=== PATIENT | male | born 1945 | race Caucasian/White ===

== ENCOUNTER 2019-03-02 11:30 | Emergency (ER) | payer MEDICARE, OTHER ==
[2019-03-02] MEDS ORDERED: IPRATROPIUM/ALBUTEROL 3 ML NEB INH STA (12:15)
[2019-03-02 12:52] LABS: BASOPHILS # (AUTO) 0.1 10^3/uL (0.0-0.1); BASOPHILS % (AUTO) 1.1 %; EOSINOPHILS # (AUTO) 0.1 10^3/uL (0.0-0.7); EOSINOPHILS % (AUTO) 0.8 %; HGB - HEMOGLOBIN 13.4 g/dL (14.0-18.0); LYMPHOCYTES # (AUTO) 1.4 10^3/uL (1.5-3.5); LYMPHOCYTES % (AUTO) 21.9 %; MEAN CORPUSCULAR HEMOGLOBIN 32.1 pg (27.0-31.0); MEAN CORPUSCULAR HGB CONC 33.3 g/dL (32.0-36.0); MEAN CORPUSCULAR VOLUME 96.4 fL (80.0-94.0); MEAN PLATELET VOLUME 7.1 fL (7.4-11.4); MONOCYTES # (AUTO) 0.5 10^3/uL (0.0-1.0); MONOCYTES % (AUTO) 8.3 %; NEUTROPHILS # (AUTO) 4.3 10^3/uL (1.5-6.6); NEUTROPHILS % (AUTO) 67.9 %; PLT - PLATELET COUNT 284 10^3/uL (130-450); RED BLOOD COUNT 4.18 10^6/uL (4.70-6.10); RED CELL DISTRIBUTION WIDTH 14.9 % (12.0-15.0); WHITE BLOOD COUNT 6.3 x10^3/uL (4.8-10.8)
[2019-03-02 13:04] LABS: ALBUMIN 3.5 g/dL (3.2-5.5); ALBUMIN/GLOBULIN RATIO 1.1 (1.0-2.2); BILIRUBIN,TOTAL 0.6 mg/dL (0.2-1.0); CALCIUM 8.6 mg/dL (8.5-10.3); CREATININE 0.7 mg/dL (0.6-1.2); TOTAL PROTEIN 6.6 g/dL (6.7-8.2)
--- NOTE | 2019-03-02 13:31 | XRAY Report ---
Reason: dyspnea Procedure Date: 03/02/2019 Accession Number: [id number] / [id number] Procedure: XR - Chest 2 View X-Ray CPT Code: 24111 FULL RESULT: EXAM: CHEST RADIOGRAPHY EXAM DATE: 03/02/2019 01:09 PM. CLINICAL HISTORY: Shortness of air. Worsening. COMPARISON: None. TECHNIQUE: 2 views. FINDINGS: Lungs/Pleura: Hyperinflation. No consolidation. No vascular congestion. No pneumothorax but biapical parenchymal scarring and pleural thickening. Mediastinum: Heart size is normal. Aorta is mildly tortuous. Other: Degenerative changes of the thoracic spine. IMPRESSION: 1. Hyperinflation. 2. No acute disease. RADIA
--- NOTE | 2019-03-02 14:14 | ED Physician Documentation ---
History of Present Illness - Stated complaint Stated Complaint: SOA - Chief complaint Chief Complaint: Resp - History obtained from History obtained from: Patient - History of Present Illness Timing: How many weeks ago (several) Pain level max: 0 Pain level now: 0 Improved by: rest Worsened by: exertion - Additonal information Additional information: 73-year-old male presents the emergency department with difficulty breathing for the past several months. Worsening over the past week or so. Does have a long history of smoking, but quit 10 years ago. No recent illness. Minimal cough. No fever. He has been seen by his doctor for this with no diagnosis. He also complains that he has had tingling pains in his feet for several years. Review of Systems Constitutional: denies: Fever, Chills GI: denies: Vomiting Skin: denies: Rash Musculoskeletal: denies: Neck pain, Back pain Neurologic: denies: Headache PD PAST MEDICAL HISTORY - Past Medical History Past Medical History: Yes Endocrine/Autoimmune: Type 2 diabetes - Past Surgical History Past Surgical History: Yes - Present Medications Home Medications: Ambulatory Orders Medication Instructions Recorded Confirmed Albuterol Sulf [Ventolin Hfa 1 - 2 puffs INH Q4HR PRN #1 inhaler 03/02/19 Inhaler] Fluticasone Propionate [Flovent 12 gm INH BID #1 aer.w.adap 03/02/19 Hfa] - Allergies Allergies/Adverse Reactions: Allergies Allergy/AdvReac Type Severity Reaction Status Date / Time acetaminophen [From Tylenol] Allergy Rash Verified 03/02/19 11:39 - Social History Does the pt smoke?: No Smoking Status: Never smoker - Immunizations Immunizations are current?: Yes PD ED PE NORMAL - Vitals Vital signs reviewed: Yes - General General: Alert and oriented X 3, No acute distress - HEENT HEENT: Moist mucous membranes - Neck Neck: Supple, no meningeal sign - Cardiac Cardiac: RRR - Respiratory Respiratory: No respiratory distress, Other (diminished BS bilaterally.) - Abdomen Abdomen: Soft, Non tender, Non distended - Derm Derm: Warm and dry - Extremities Extremities: No edema, Other (Cool bilateral lower extremity over the feet. No sores. Does have palpable pulses but weak.) - Neuro Neuro: Alert and oriented X 3 - Psych Psych: Normal mood, Normal affect Results - Vitals Vitals: Vital Signs - 24 hr 0503/02/19 03/02/19 11:35 12:46 13:18 Temperature 36.4 C 36.4 C L Heart Rate 91 88 79 Respiratory 16 18 12 Rate Blood Pressure 160/97 134/83 H O2 Saturation 98 98 03/02/19 14:40 Temperature Heart Rate 81 Respiratory 18 Rate Blood Pressure 136/80 H O2 Saturation 95 Oxygen O2 Source Room air - EKG (time done) 1141 Rate: Rate (enter#) (85) Rhythm: NSR [place]: Anterior hemiblock (Left anterior fascicular block) Intervals: Normal MS QRS: Normal Ischemia: Normal ST segments - Labs Labs: Laboratory Tests 03/02/19 03/02/19 03/02/19 12:43 12:43 12:43 WBC 6.3 RBC 4.18 L Hgb 13.4 L Hct 40.2 L MCV 96.4 H MCH 32.1 H MCHC 33.3 RDW 14.9 Plt Count 284 MPV 7.1 L Neut # (Auto) 4.3 Lymph # (Auto) 1.4 L [place] # (Auto) 0.5 Eos # (Auto) 0.1 Baso # (Auto) 0.1 Absolute Nucleated RBC 0.00 Nucleated RBC % 0.0 Sodium 132 L Potassium 4.4 Chloride 96 L Carbon Dioxide 27 Anion Gap 9.0 BUN 5 L Creatinine 0.7 Estimated GFR (MDRD) 110 Glucose 102 H Calcium 8.6 Total Bilirubin 0.6 AST 30 ALT 15 Alkaline Phosphatase 66 Troponin I < 0.04 B-Natriuretic Peptide Total Protein 6.6 L Albumin 3.5 Globulin 3.1 Albumin/Globulin Ratio 1.1 Lipase 23 03/02/19 12:43 WBC RBC Hgb Hct MCV MCH MCHC RDW Plt Count MPV Neut # (Auto) Lymph # (Auto) [place] # (Auto) Eos # (Auto) Baso # (Auto) Absolute Nucleated RBC Nucleated RBC % Sodium Potassium Chloride Carbon Dioxide Anion Gap BUN Creatinine Estimated GFR (MDRD) Glucose Calcium Total Bilirubin AST ALT Alkaline Phosphatase Troponin I B-Natriuretic Peptide 24 Total Protein Albumin Globulin Albumin/Globulin Ratio Lipase - Rads (name of study) cxr Radiology: Prelim report reviewed, EMP read contemporaneously, See rad report (Hyperinflation without acute disease) PD MEDICAL DECISION MAKING - ED course Complexity details: reviewed results, re-evaluated patient (Feels better after nebulizer treatment), considered differential, d/w patient ED course: 73-year-old male with what appears to be a mild COPD flare. He is not on any inhalers at home. Will place him on Flovent and albuterol. He is well- appearing, nontoxic. Afebrile. No evidence of congestive heart failure. Patient counseled regarding signs and symptoms for which I believe and urgent re-evaluation would be necessary. Patient with good understanding of and agreement to plan and is comfortable going home at this time This document was made in part using voice recognition software. While efforts are made to proofread this document, sound alike and grammatical errors may occur. Patient also likely has peripheral vascular disease affecting the blood flow to his feet. Recommend further evaluation by his doctor for this Departure - Departure Disposition: 01 Home, Self Care Clinical Impression: COPD (chronic obstructive pulmonary disease) Qualifiers: COPD type: unspecified COPD Qualified Code(s): J44.9 - Chronic obstructive pulmonary disease, unspecified Condition: Good Instructions: ED COPD Flare Follow-Up: Jose Russo MD [Primary Care Provider] - Within 1 week Prescriptions: Albuterol Sulf [Ventolin Hfa Inhaler] 1 - 2 puffs INH Q4HR PRN #1 inhaler PRN Reason: Shortness Of Air/Wheezing Fluticasone Propionate [Flovent Hfa] 12 gm INH BID #1 aer.w.adap Comments: Use the medications as prescribed. Return if you worsen. Follow-up with your doctor for further evaluation and care. You may want to have your doctor performed vascular studies on your feet as it appears that you do have peripheral vascular disease and this may be causing the discomfort in your feet as well. Discharge Date/Time: 03/02/19 14:54
[2019-03-02 14:54] VITALS: BP 136/80
== END 2019-03-02 14:54 | disposition home or self-care (01) ==
LOC: ED 11:30
DX: J44.1 Chronic obstructive pulmonary disease with (acute) exacerbation (principal); E11.9 Type 2 diabetes mellitus without complications; Z87.891 Personal history of nicotine dependence
CPT/HCPCS: 36415; 71046; 80053; 83690; 83880; 84484; 85025; 93005; 94640; 94664; 99283; 99284

== ENCOUNTER 2019-07-04 09:34 | Outpatient (CLI) | payer OTHER ==
[~2019-07-04 09:34] MED LIST: ALBUTEROL NEB 2.5 MG/3 ML INH SCH
== END 2019-07-04 09:35 | disposition home or self-care (01) ==
LOC: RT 09:34
PROVIDERS: ATTEND Family Medicine
DX: R06.02 Shortness of breath (principal); R06.00 Dyspnea, unspecified; F17.200 Nicotine dependence, unspecified, uncomplicated
CPT/HCPCS: 94060; 94727; 94729

== ENCOUNTER 2021-05-30 07:59 | Outpatient (CLI) | payer OTHER | END 2021-05-30 08:00 | disposition critical access hospital (66) | LOC: EMS 07:59 | DX: R06.02 Shortness of breath (principal) | CPT/HCPCS: A0425; A0427 ==

== ENCOUNTER 2021-05-30 08:40 | Inpatient (IN) | payer MEDICARE, OTHER ==
[2021-05-30] MEDS ORDERED: ALBUTEROL NEB 2.5 MG/3 ML INH STA (08:50)
--- NOTE | 2021-05-30 08:54 | ED Physician Documentation ---
PD HPI DYSPNEA - Stated complaint Stated Complaint: SOA - History obtained from History obtained from: Patient, EMS - Additional information Additional information: 75-year-old gentleman with COPD on Spiriva and albuterol. Does not wear oxygen at home. He quit smoking about 10 years ago. He has had progressive shortness of breath since the heat wave a month ago but much worse over the last week with cough productive of scant sticky thick mucus. No fevers. Noted to be hypoxic by EMS. On 6 L nasal cannula to be in the low 90s here. Prior to arrival received a DuoNeb, and albuterol neb, and 125 mg of Solu-Medrol. No associated chest pain or pedal edema. Review of Systems Ten Systems: 10 systems reviewed and negative Constitutional: denies: Fever, Chills Cardiac: denies: Chest pain / pressure, Palpitations Respiratory: reports: Dyspnea, Cough PD PAST MEDICAL HISTORY - Past Medical History Endocrine/Autoimmune: Type 2 diabetes - Past Surgical History Past Surgical History: Yes - Present Medications Home Medications: Ambulatory Orders Medication Instructions Recorded Confirmed Albuterol Sulf [Ventolin Hfa 1 - 2 puffs INH Q4HR PRN #1 inhaler 03/02/19 Inhaler] Fluticasone Propionate [Flovent 12 gm INH BID #1 aer.w.adap 03/02/19 Hfa] - Allergies Allergies/Adverse Reactions: Allergies Allergy/AdvReac Type Severity Reaction Status Date / Time acetaminophen [From Tylenol] Allergy Rash Verified 05/30/21 08:56 - Social History Does the pt smoke?: No Smoking Status: Never smoker - Immunizations Immunizations are current?: Yes PD ED PE NORMAL - Vitals Vital signs reviewed: Yes - General General: Alert and oriented X 3, Other (Mildly labored breathing) - HEENT HEENT: PERRL, EOMI - Neck Neck: Supple, no meningeal sign, No bony TTP - Cardiac Cardiac: Other (Modest tachycardia but regular without murmur) - Respiratory Respiratory: Other (Mildly labored with tachypnea, decreased breath sounds and inspiratory and expiratory wheezes throughout.) - Abdomen Abdomen: Soft, Non tender - Back Back: No CVA TTP, No spinal TTP - Derm Derm: Normal color, Warm and dry - Extremities Extremities: No edema, No calf tenderness / cord - Neuro Neuro: Alert and oriented X 3, Normal speech Results - Vitals Vitals: Vital Signs - 24 hr 05/30/21 05/30/21 05/30/21 08:46 09:01 09:10 Temperature 36.2 C L Heart Rate 116 H 108 H 104 H Respiratory 24 24 20 Rate Blood Pressure 152/93 H 152/93 H O2 Saturation 89 L 94 05/30/21 10:50 Temperature Heart Rate 104 H Respiratory 20 Rate Blood Pressure 146/90 H O2 Saturation 88 L Oxygen O2 Source Room air Oxygen Flow Rate 4 - EKG (time done) 0850 Rate: Rate (enter#) (108) Rhythm: Sinus tachycardia [place]: Normal Intervals: Other (LAFB) Ischemia: Non specific changes. No: ST elevation c/w ischemia, ST depression - Labs Labs: Laboratory Tests 05/30/21 05/30/21 05/30/21 09:05 09:05 09:05 WBC 7.0 RBC 4.47 L Hgb 13.1 L Hct 39.8 L MCV 89.0 MCH 29.3 MCHC 32.9 RDW 14.7 Plt Count 255 MPV 9.3 Neut # (Auto) 4.3 Lymph # (Auto) 1.4 L Day # (Auto) 0.5 Eos # (Auto) 0.8 H Baso # (Auto) 0.1 Absolute Nucleated RBC 0.00 Nucleated RBC % 0.0 VBG pH VBG pCO2 VBG pO2 VBG HCO3 VBG Total CO2 VBG O2 Saturation VBG Base Excess Sodium 134 L Potassium 3.6 Chloride 98 L Carbon Dioxide 25 Anion Gap 11.0 BUN 7 Creatinine 0.6 Estimated GFR (MDRD) 131 Glucose 120 H Calcium 9.1 Magnesium 2.0 B-Natriuretic Peptide 15 Nasal Adenovirus (PCR) Nasal B. parapertussis DNA (PCR) Nasal Coronavir 229E PCR Nasal Coronavir HKU1 PCR Nasal Coronavir NL63 PCR Nasal Coronavir OC43 PCR Nasal Enterovir/Rhinovir PCR Nasal Influenza B PCR Nasal Influenza A PCR Nasal Parainfluen 1 PCR Nasal Parainfluen 2 PCR Nasal Parainfluen 3 PCR Nasal Parainfluen 4 PCR Nasal RSV (PCR) Nasal B.pertussis DNA PCR Nasal C.pneumoniae (PCR) Chava Human Metapneumo PCR Nasal M.pneumoniae (PCR) Nasal SARS-CoV-2 (PCR) 05/30/21 05/30/21 09:05 09:15 WBC RBC Hgb Hct MCV MCH MCHC RDW Plt Count MPV Neut # (Auto) Lymph # (Auto) Day # (Auto) Eos # (Auto) Baso # (Auto) Absolute Nucleated RBC Nucleated RBC % VBG pH 7.378 VBG pCO2 45.0 VBG pO2 67.4 H VBG HCO3 25.9 VBG Total CO2 27.3 VBG O2 Saturation 93.8 H VBG Base Excess 0.4 Sodium Potassium Chloride Carbon Dioxide Anion Gap BUN Creatinine Estimated GFR (MDRD) Glucose Calcium Magnesium B-Natriuretic Peptide Nasal Adenovirus (PCR) NOT DETECTED Nasal B. parapertussis DNA (PCR) NOT DETECTED Nasal Coronavir 229E PCR NOT DETECTED Nasal Coronavir HKU1 PCR NOT DETECTED Nasal Coronavir NL63 PCR NOT DETECTED Nasal Coronavir OC43 PCR NOT DETECTED Nasal Enterovir/Rhinovir PCR NOT DETECTED Nasal Influenza B PCR NOT DETECTED Nasal Influenza A PCR NOT DETECTED Nasal Parainfluen 1 PCR NOT DETECTED Nasal Parainfluen 2 PCR NOT DETECTED Nasal Parainfluen 3 PCR NOT DETECTED Nasal Parainfluen 4 PCR NOT DETECTED Nasal RSV (PCR) NOT DETECTED Nasal B.pertussis DNA PCR NOT DETECTED Nasal C.pneumoniae (PCR) NOT DETECTED Chava Human Metapneumo PCR NOT DETECTED Nasal M.pneumoniae (PCR) NOT DETECTED Nasal SARS-CoV-2 (PCR) NOT DETECTED PD MEDICAL DECISION MAKING - ED course ED course: 75-year-old gentleman with known COPD presents with an exacerbation of same, he had a total of 5 nebs between the prehospital realm and in the emergency department and still is hypoxic on room air into the mid eighties. Spoke with Dr. Davis for admission at 10:52 AM. - Critical Care Time(min): 35 Time Includes: Direct patient care, Reassess patient, Document care, Coordinate care, Medical consult, Family consult for tx dec Data interpretation: Labs Procedures excluded from critical care time: EKG Departure - Departure Disposition: 66 [facility] DC/Xfer Clinical Impression: Hypoxemia COPD (chronic obstructive pulmonary disease) Qualifiers: COPD type: COPD with acute exacerbation Qualified Code(s): J44.1 - Chronic obstructive pulmonary disease with (acute) exacerbation Condition: Serious
[2021-05-30 09:09] LABS: VBG PH 7.378 (7.31-7.41); VBG PO2 67.4 mmHg (25-47)
[2021-05-30 09:10] LABS: VBG BASE EXCESS 0.4 mmol/L (-2 - +2); VBG HCO3 25.9 mmol/L (23-28); VBG OXYGEN SATURATION 93.8 % (60-80); VBG TOTAL CO2 27.3 mmol/L (24-29)
--- NOTE | 2021-05-30 09:12 | XRAY Report ---
PROCEDURE: Chest 1 View X-Ray INDICATIONS: dyspnea TECHNIQUE: One view of the chest was acquired. COMPARISON: 03/02/2019 chest x-ray FINDINGS: Surgical changes and devices: None. Lungs and pleura: No pleural effusions or pneumothorax. Lungs are clear. Mediastinum: Mediastinal contours appear normal. Heart size is normal. Bones and chest wall: No suspicious bony lesions. Overlying soft tissues appear unremarkable. IMPRESSION: No acute process. Reviewed by: Jayden Peterson MD on 05/30/2021 8:11 AM [facility] Approved by: Jayden Peterson MD on 05/30/2021 8:11 AM [facility] Station ID: [id number]
[2021-05-30 09:13] LABS: BASOPHILS # (AUTO) 0.1 10^3/uL (0.0-0.1); BASOPHILS % (AUTO) 1.6 %; EOSINOPHILS # (AUTO) 0.8 10^3/uL (0.0-0.7); EOSINOPHILS % (AUTO) 10.7 %; HCT - HEMATOCRIT 39.8 % (42.0-52.0); HGB - HEMOGLOBIN 13.1 g/dL (14.0-18.0); LYMPHOCYTES # (AUTO) 1.4 10^3/uL (1.5-3.5); LYMPHOCYTES % (AUTO) 19.7 %; MEAN CORPUSCULAR HEMOGLOBIN 29.3 pg (27.0-31.0); MEAN CORPUSCULAR HGB CONC 32.9 g/dL (32.0-36.0); MEAN PLATELET VOLUME 9.3 fL (7.4-11.4); MONOCYTES # (AUTO) 0.5 10^3/uL (0.0-1.0); MONOCYTES % (AUTO) 7.2 %; NEUTROPHILS # (AUTO) 4.3 10^3/uL (1.5-6.6); NEUTROPHILS % (AUTO) 60.7 %; PLT - PLATELET COUNT 255 10^3/uL (130-450); RED BLOOD COUNT 4.47 10^6/uL (4.70-6.10); RED CELL DISTRIBUTION WIDTH 14.7 % (12.0-15.0)
[2021-05-30 09:19] LABS: CALCIUM 9.1 mg/dL (8.5-10.3); CREATININE 0.6 mg/dL (0.6-1.2); POTASSIUM 3.6 mmol/L (3.5-5.0)
[2021-05-30 10:24] LABS: B. PARAPERTUSSIS- RESP PCR PAN NOT DETECTED; B. PERTUSSIS- RESP PCR PANEL NOT DETECTED; C. PNEUMONIAE- RESP PCR PANEL NOT DETECTED; CORONAVIRUS 229E-RESP PCR NOT DETECTED; CORONAVIRUS HKU1-RESP PCR NOT DETECTED; CORONAVIRUS NL63-RESP PCR NOT DETECTED; CORONAVIRUS OC43-RESP PCR NOT DETECTED; HUMAN METAPNEUMOVIRUS NOT DETECTED; INFLUENZA A- RESP PCR PANEL NOT DETECTED; INFLUENZA B - RESP PCR PANEL NOT DETECTED; M. PNEUMONIAE- RESP PCR PANEL NOT DETECTED; PARAINFLUENZA VIRUS 1 NOT DETECTED; PARAINFLUENZA VIRUS 2 NOT DETECTED; PARAINFLUENZA VIRUS 3 NOT DETECTED; PARAINFLUENZA VIRUS 4 NOT DETECTED; RHINOVIRUS/ENTEROVIRUS NOT DETECTED; RSV- RESP PCR PANEL NOT DETECTED; SARS-CoV-2 -RESP PCR PANEL NOT DETECTED
[2021-05-30] MEDS ORDERED: SODIUM CHLORIDE FLUSH 0.9% 10 ML SYRINGE IVP PRN (10:52)
[2021-05-30] MEDS ORDERED: ONDANSETRON 4 MG/2 ML VIAL IVP PRN (10:52)
--- NOTE | 2021-05-30 10:57 | HISTORY & PHYSICAL EXAMINATION ---
Chief Complaint - Chief Complaint Chief Complaint: dyspnea History of Present Illness - Admitted From Admitted From:: [facility] ED - History Obtained From Records Reviewed: yes History obtained from: patient - History of Present Illness HPI Comment/Other: 5-year-old male with medical history significant for COPD and neuropathy who presented to the ED with complaint of dyspnea which has been going on for the past 1 week. He has also had nonproductive cough. He thinks his dyspnea was exacerbated by the warm weather. Today his symptoms became unbearable so he called EMS. His oxygen saturation was in the 80s on room air. He does not use oxygen at home. He reports a similar exacerbation of his respiratory symptoms about 2 years ago during which time he was admitted [place]. He denies chest pain but reports tightness with inspiration. He denies abdominal pain, nausea, vomiting, fever or chills. He has diminished air movement and is wheezing. He is being admitted for further treatment. History - Past Medical History Respiratory: reports: COPD Neuro: reports: Peripheral neuropathy Endocrine/Autoimmune: reports: Type 2 diabetes MRSA Hx?: No - Past Surgical History General: reports: Other (Left wrist surgery) - Family & Social History Family History Comment/Other: He denies any significant family history. Living arrangement: At home Living Situation: Alone Social History Notes: He quit smoking in 2010. He smoked about 1 pack of cigarettes daily for 42 years. He drinks alcohol occasionally. He denies recreational substance use. He lives alone - POLST Patient has POLST: No POLST Status: Full Code Meds/Allgy - Home Medications Home Medications: Ambulatory Orders Medication Instructions Recorded Confirmed Albuterol Sulf [Ventolin Hfa 1 - 2 puffs INH Q4HR PRN #1 inhaler 03/02/19 Inhaler] Fluticasone Propionate [Flovent 12 gm INH BID #1 aer.w.adap 03/02/19 Hfa] - Allergies Allergies/Adverse Reactions: Allergies Allergy/AdvReac Type Severity Reaction Status Date / Time acetaminophen [From Tylenol] Allergy Rash Verified 05/30/21 08:56 Review of Systems - Constitutional Constitutional: denies: Fatigue, Fever, Chills - Eyes Eyes: denies: Pain - Ears, Nose & Throat Ears, Nose & Throat: denies: Ear pain - Cardiovascular Cariovascular: denies: Irregular heart rate, Chest pain - Respiratory Respiratory: reports: Cough, Wheezing, SOB at rest, SOB with exertion. denies: Sputum production - Gastrointestinal Gastrointestinal: denies: Abdominal pain, Abdominal distention, Constipation, Diarrhea, Nausea, Vomiting - Genitourinary Genitourinary: denies: Dysuria, Frequency, Urgency, Hematuria - Musculoskeletal Musculoskeletal: denies: Muscle pain, Back pain, Muscle aches, Stiffness - Integumentary Integumentary: denies: Rash, Pruritis, Lesions - Neurological Neurological: denies: General weakness, Focal weakness, Headache, Dizziness - Psychiatric Psychiatric: denies: Depression, Anxiety - Endocrine Endocrine: denies: Polyuria, Polydypsia - Hematologic/Lymphatic Hematologic/Lymphatic: denies: Anemia, Bruising, Petechiae Prior Level of Functionality: Is independent of activities of daily living. He lives alone. Exam - Vital Signs Vital Signs: Vital Signs x48h Temp Pulse Resp BP Pulse Ox 05/30/21 10:50 104 H 20 146/90 H 88 L 05/30/21 09:10 104 H 20 05/30/21 09:01 108 H 24 152/93 H 94 05/30/21 08:46 36.2 C L 116 H 24 152/93 H 89 L - Physical Exam General Appearance: positive: Alert, Mild distress Eyes Bilateral: positive: PERRL, EOMI ENT: positive: No signs of dehydration Neck: positive: No JVD, Trachea midline Respiratory: positive: Chest non-tender, Wheezes Cardiovascular: positive: Regular rate & rhythm, No murmur Abdomen: positive: Non-tender, No organomegaly, Nml bowel sounds, No distention. negative: Guarding, Rebound Back: positive: Nml inspection Skin: positive: Color nml, No rash, Warm, Dry Extremities: positive: Full ROM, Pedal edema (teace to +1) Neurologic/Psychiatric: positive: Oriented x3, Mood/affect nml Conclusion/Plan - Problem List (1) COPD exacerbation Conclusion/Plan: Supplemental oxygen via nasal cannula. Solu-Medrol 80 mg IV 3 times daily. Budesonide and formoterol ordered. DuoNeb every 4 hours as needed. (2) Acute respiratory failure with hypoxemia Conclusion/Plan: Secondary to COPD exacerbation. Supplemental oxygen via nasal cannula. Solu-Medrol 80 mg IV 3 times daily. Budesonide and formoterol ordered. DuoNeb every 4 hours as needed. - Lab Results Fish Bones: 05/30/21 09:05 05/30/21 09:05 Core Measures - Anticipated LOS I expect patient to be DC'd or transferred within 96 hours.: Yes - DVT/VTE - Prophylaxis VTE/DVT Device ordered at admit?: Yes VTE/DVT Prophylaxis med ordered at admit?: Yes
[2021-05-30] MEDS ORDERED: methylPREDNISolone SUCCINATE 40 MG/ML VIAL ONE ×2 (14:56→22:23)
[2021-05-30] MEDS: methylPREDNISolone SUCCINATE 40 MG/ML VIAL IVP SCH ×2 (14:56→22:23)
[2021-05-30] MEDS: SODIUM CHLORIDE FLUSH 0.9% 10 ML SYRINGE IVP SCH (18:46)
[2021-05-30] MEDS: BUDESONIDE 0.5 MG/2 ML NEB INH SCH (19:30)
[2021-05-30] MEDS: IPRATROPIUM/ALBUTEROL 3 ML NEB INH PRN (19:30)
[2021-05-30] MEDS: FORMOTEROL FUMARATE NEB 20 MCG/2 ML INH SCH (19:30)
[2021-05-30] MEDS ORDERED: BUDESONIDE 0.5 MG/2 ML NEB INH ONE (19:34)
[2021-05-30] MEDS ORDERED: IPRATROPIUM/ALBUTEROL 3 ML NEB INH ONE (19:35)
[2021-05-30] MEDS ORDERED: FORMOTEROL FUMARATE NEB 20 MCG/2 ML INH ONE (19:35)
[2021-05-30] MEDS ORDERED: ZOLPIDEM 5 MG TABLET PO PRN (22:10)
[2021-05-31] MEDS: SODIUM CHLORIDE FLUSH 0.9% 10 ML SYRINGE IVP SCH ×4 (00:08→23:36)
[2021-05-31] MEDS ORDERED: ZOLPIDEM 5 MG TABLET ONE (00:10)
[2021-05-31 02:25] LABS: BASOPHILS % (AUTO) 0.1 %; HGB - HEMOGLOBIN 12.3 g/dL (14.0-18.0); LYMPHOCYTES # (AUTO) 0.6 10^3/uL (1.5-3.5); LYMPHOCYTES % (AUTO) 7.1 %; MEAN CORPUSCULAR HEMOGLOBIN 29.1 pg (27.0-31.0); MEAN CORPUSCULAR HGB CONC 32.4 g/dL (32.0-36.0); MEAN PLATELET VOLUME 9.5 fL (7.4-11.4); MONOCYTES # (AUTO) 0.1 10^3/uL (0.0-1.0); MONOCYTES % (AUTO) 1.5 %; NEUTROPHILS # (AUTO) 7.2 10^3/uL (1.5-6.6); NEUTROPHILS % (AUTO) 90.9 %; PLT - PLATELET COUNT 241 10^3/uL (130-450); RED BLOOD COUNT 4.22 10^6/uL (4.70-6.10); RED CELL DISTRIBUTION WIDTH 14.8 % (12.0-15.0); WHITE BLOOD COUNT 7.9 x10^3/uL (4.8-10.8)
[2021-05-31 02:35] LABS: CALCIUM 8.7 mg/dL (8.5-10.3); CREATININE 0.6 mg/dL (0.6-1.2); POTASSIUM 4.1 mmol/L (3.5-5.0)
[2021-05-31] MEDS ORDERED: methylPREDNISolone SUCCINATE 40 MG/ML VIAL ONE (05:26)
[2021-05-31] MEDS: methylPREDNISolone SUCCINATE 40 MG/ML VIAL IVP SCH ×3 (05:27→21:30)
--- NOTE | 2021-05-31 07:54 | PROVIDER PROGRESS NOTE ---
Assessment/Plan - Problem List (1) COPD exacerbation Assessment/Plan: Supplemental oxygen via nasal cannula. Solu-Medrol 80 mg IV 3 times daily. Budesonide and formoterol ordered. DuoNeb every 4 hours as needed. Attempting to ambulate the patient within his room resulted in him becoming tachycardic, tachypneic and his oxygen saturation dropping to the 80s despite 2 L of oxygen. He is not on oxygen at home. As a result we will continue to treat him and reevaluate daily. (2) Acute respiratory failure with hypoxemia Assessment/Plan: Supplemental oxygen via nasal cannula. Solu-Medrol 80 mg IV 3 times daily. Budesonide and formoterol ordered. DuoNeb every 4 hours as needed. Attempting to ambulate the patient within his room resulted in him becoming tachycardic, tachypneic and his oxygen saturation dropping to the 80s despite 2 L of oxygen. He is not on oxygen at home. As a result we will continue to treat him and reevaluate daily. (3) Peripheral neuropathy Assessment/Plan: On gabapentin 300 mg p.o. 3 times daily (4) Alcohol abuse Assessment/Plan: CIWA protocol initiated. Librium 25 mg p.o. twice daily (5) Glaucoma Assessment/Plan: On Xalatan and Trusopt - Current Meds Current Meds: Current Medications Generic Name Dose Route Start Last Admin Trade Name Freq PRN Reason Stop Dose Admin Albuterol/Ipratropium 3 ml 05/30/21 10:57 05/30/21 19:30 Ipratropium/Albuterol 3 Ml Neb INH 3 ml Q4HR PRN Administration Wheezing Budesonide 0.5 mg 05/30/21 19:00 05/30/21 19:30 Budesonide 0.5 Mg/2 Ml Neb INH 0.5 mg RTBID AMAURI Administration Formoterol Fumarate 20 mcg 05/30/21 19:00 05/30/21 19:30 Formoterol Fumarate Neb 20 Mcg/2 Ml INH 20 mcg RTBID AMAURI Administration Methylprednisolone 80 mg 05/30/21 14:00 05/31/21 05:27 Methylprednisolone Succinate 40 Mg/Ml Vial IVP 80 mg TID AMAURI Administration Sodium Chloride 10 ml 05/30/21 17:00 05/31/21 00:08 Sodium Chloride Flush 0.9% 10 Ml Syringe IVP 10 ml 0100,0900,1700 AMAURI Administration Zolpidem Tartrate 5 mg 05/30/21 22:10 05/31/21 00:07 Zolpidem 5 Mg Tablet PO 5 mg QPM PRN Administration Insomnia - Lab Result Fish Bone Diagrams: 05/31/21 02:15 05/31/21 02:15 - Additional Planning My Orders: My Active Orders 05/30/21 10:52 Activity Orders [RC] Q2HR IO [RC] IOSHIFT Initiate Bowel Care Protocol [RC] .protocol Initiate Line Care Protocol [RC] QSHIFT Initiate Personal Care Protoco [RC] .protocol Oxygen Therapy [RC] .PRN Telemetry- [RC] Q4HR Vital Signs [RC] 0800,1600,0000 Ondansetron Inj [Zofran Inj] 4 mg IVP Q6HR PRN Sodium Chloride Flush 0.9% [Normal Saline Flush 0.9%] 10 ml IVP PRN PRN Code Status [OTHERS] Routine Condition of Patient [OTHERS] Routine DVT Prophylaxis [OTHERS] Routine 05/30/21 10:55 SCDs [RC] QSHIFT 05/30/21 10:57 Ipratropium/Albuterol [Duoneb] 3 ml INH Q4HR PRN 05/30/21 Lunch Regular Diet [DIET] 05/30/21 14:00 methylPREDNISolone SUCCINATE [SOLU-Medrol (40MG VIAL)] 80 mg IVP TID 05/30/21 17:00 Sodium Chloride Flush 0.9% [Normal Saline Flush 0.9%] 10 ml IVP 0100,0900,1700 05/30/21 19:00 Budesonide [Pulmicort] 0.5 mg INH RTBID Formoterol Fumarate [Perforomist] 20 mcg INH RTBID 05/30/21 19:39 RT [Nebulizer/MDI Tx.] [RC] PRN 05/31/21 09:00 Enoxaparin [Lovenox] 40 mg SUBQ DAILY 06/01/21 05:00 BMP - BASIC METABOLIC PANEL [CHEM] DAILYLAB CBC - COMP BLD CT W/AUTO DIFF [HEME] DAILYLAB 06/02/21 05:00 BMP - BASIC METABOLIC PANEL [CHEM] DAILYLAB CBC - COMP BLD CT W/AUTO DIFF [HEME] DAILYLAB 06/03/21 05:00 BMP - BASIC METABOLIC PANEL [CHEM] DAILYLAB CBC - COMP BLD CT W/AUTO DIFF [HEME] DAILYLAB 06/04/21 05:00 BMP - BASIC METABOLIC PANEL [CHEM] DAILYLAB CBC - COMP BLD CT W/AUTO DIFF [HEME] DAILYLAB Subjective - Subjective Patient Reports: Other (Patient was resting comfortably in bed at time of exam. He reports breathing better today than yesterday at the time of admission. Him has mild expiratory wheezes. He denied any other complaints.) Objective Vital Signs: Vital Signs - 24 hr 05/30/21 05/30/21 05/30/21 08:46 09:01 09:10 Temperature 36.2 C L Heart Rate 116 H 108 H 104 H Heart Rate [ Brachial] Respiratory 24 24 20 Rate Blood Pressure 152/93 H 152/93 H Blood Pressure [Right Brachial artery] O2 Saturation 89 L 94 05/30/21 05/30/21 05/30/21 10:50 12:06 16:00 Temperature 36.6 C 36.6 C Heart Rate 104 H Heart Rate [ 103 H 92 Brachial] Respiratory 20 20 22 Rate Blood Pressure 146/90 H Blood Pressure 130/87 H 122/71 [Right Brachial artery] O2 Saturation 88 L 94 96 05/30/21 05/31/21 05/31/21 19:39 00:00 00:08 Temperature 36.5 C 36.7 C Heart Rate 95 Heart Rate [ 90 99 Brachial] Respiratory 16 22 20 Rate Blood Pressure Blood Pressure 124/77 131/83 H [Right Brachial artery] O2 Saturation 96 98 05/31/21 05:27 Temperature 36.4 C L Heart Rate Heart Rate [ 90 Brachial] Respiratory 16 Rate Blood Pressure Blood Pressure 128/78 [Right Brachial artery] O2 Saturation 96 Oxygen O2 Source Room air Oxygen Flow Rate 4 I&O (Last 24 Hrs): Intake and Output Totals x24h 05/29/21 05/30/21 05/31/21 23:59 23:59 23:59 Intake Total 790 Output Total 550 275 Balance 240 -275 General: Alert, Oriented x3, No acute distress HEENT: PERRLA, EOMI Neck: Supple, No JVD Neuro: Alert, Non Focal, Oriented Times 3 Cardiovascular: Regular rate, Normal S1, Normal S2 Respiratory: Chest non-tender, Wheezes (mild) Abdomen: Normal bowel sounds, Soft, No tenderness, No masses Extremities: No clubbing, No cyanosis, No edema, No tenderness/swelling Skin: No rashes, No breakdown, No significant lesion - Results Results: Laboratory Results WBC 7.9 x10^3/uL (4.8-10.8) 05/31/21 02:15 RBC 4.22 10^6/uL (4.70-6.10) L 05/31/21 02:15 Hgb 12.3 g/dL (14.0-18.0) L 05/31/21 02:15 Hct 38.0 % (42.0-52.0) L 05/31/21 02:15 MCV 90.0 fL (80.0-94.0) 05/31/21 02:15 MCH 29.1 pg (27.0-31.0) 05/31/21 02:15 MCHC 32.4 g/dL (32.0-36.0) 05/31/21 02:15 RDW 14.8 % (12.0-15.0) 05/31/21 02:15 Plt Count 241 10^3/uL (130-450) 05/31/21 02:15 MPV 9.5 fL (7.4-11.4) 05/31/21 02:15 Neut # (Auto) 7.2 10^3/uL (1.5-6.6) H 05/31/21 02:15 Lymph # (Auto) 0.6 10^3/uL (1.5-3.5) L 05/31/21 02:15 [place] # (Auto) 0.1 10^3/uL (0.0-1.0) 05/31/21 02:15 Eos # (Auto) 0.0 10^3/uL (0.0-0.7) 05/31/21 02:15 Baso # (Auto) 0.0 10^3/uL (0.0-0.1) 05/31/21 02:15 Absolute Nucleated RBC 0.00 x10^3/uL 05/31/21 02:15 Nucleated RBC % 0.0 /100WBC 05/31/21 02:15 VBG pH 7.378 (7.31-7.41) 05/30/21 09:05 VBG pCO2 45.0 mmHg (41-51) 05/30/21 09:05 VBG pO2 67.4 mmHg (25-47) H 05/30/21 09:05 VBG HCO3 25.9 mmol/L (23-28) 05/30/21 09:05 VBG Total CO2 27.3 mmol/L (24-29) 05/30/21 09:05 VBG O2 Saturation 93.8 % (60-80) H 05/30/21 09:05 VBG Base Excess 0.4 mmol/L (-2 - +2) 05/30/21 09:05 Sodium 133 mmol/L (135-145) L 05/31/21 02:15 Potassium 4.1 mmol/L (3.5-5.0) 05/31/21 02:15 Chloride 99 mmol/L (101-111) L 05/31/21 02:15 Carbon Dioxide 26 mmol/L (21-32) 05/31/21 02:15 Anion Gap 8.0 (6-13) 05/31/21 02:15 BUN 14 mg/dL (6-20) 05/31/21 02:15 Creatinine 0.6 mg/dL (0.6-1.2) 05/31/21 02:15 Estimated GFR (MDRD) 131 (>89) 05/31/21 02:15 Glucose 147 mg/dL (70-100) H 05/31/21 02:15 Calcium 8.7 mg/dL (8.5-10.3) 05/31/21 02:15 Magnesium 2.0 mg/dL (1.7-2.8) 05/30/21 09:05 Troponin I High Sens 14.9 ng/L (2.3-19.7) 05/31/21 02:15 B-Natriuretic Peptide 15 pg/mL (5-100) 05/30/21 09:05 Nasal Adenovirus (PCR) NOT DETECTED 05/30/21 09:15 Nasal B. parapertussis DNA (PCR) NOT DETECTED 05/30/21 09:15 Nasal Coronavir 229E PCR NOT DETECTED 05/30/21 09:15 Nasal Coronavir HKU1 PCR NOT DETECTED 05/30/21 09:15 Nasal Coronavir NL63 PCR NOT DETECTED 05/30/21 09:15 Nasal Coronavir OC43 PCR NOT DETECTED 05/30/21 09:15 Nasal Enterovir/Rhinovir PCR NOT DETECTED 05/30/21 09:15 Nasal Influenza B PCR NOT DETECTED 05/30/21 09:15 Nasal Influenza A PCR NOT DETECTED 05/30/21 09:15 Nasal Parainfluen 1 PCR NOT DETECTED 05/30/21 09:15 Nasal Parainfluen 2 PCR NOT DETECTED 05/30/21 09:15 Nasal Parainfluen 3 PCR NOT DETECTED 05/30/21 09:15 Nasal Parainfluen 4 PCR NOT DETECTED 05/30/21 09:15 Nasal RSV (PCR) NOT DETECTED 05/30/21 09:15 Nasal B.pertussis DNA PCR NOT DETECTED 05/30/21 09:15 Nasal C.pneumoniae (PCR) NOT DETECTED 05/30/21 09:15 Chava Human Metapneumo PCR NOT DETECTED 05/30/21 09:15 Nasal M.pneumoniae (PCR) NOT DETECTED 05/30/21 09:15 Nasal SARS-CoV-2 (PCR) NOT DETECTED 05/30/21 09:15 ABX Reporting Has patient been on IV antibiotics over the past 48 hours?: No
[2021-05-31] MEDS: FORMOTEROL FUMARATE NEB 20 MCG/2 ML INH SCH ×2 (08:48→21:26)
[2021-05-31] MEDS: BUDESONIDE 0.5 MG/2 ML NEB INH SCH ×2 (08:48→21:26)
[2021-05-31] MEDS: ENOXAPARIN 40 MG/0.4 ML SYRINGE SUBQ SCH (09:22)
[2021-05-31] MEDS ORDERED: MAGNESIUM SULFATE 2 GRAM 2 GM/50 ML BAG IV ONE (12:37)
[2021-05-31] MEDS ORDERED: LORazepam 2 MG/ML VIAL IVP PRN (12:37)
[2021-05-31] MEDS: IPRATROPIUM/ALBUTEROL 3 ML NEB INH PRN ×2 (13:14→21:25)
[2021-05-31] MEDS: chlordiazePOXIDE 25 MG CAPSULE PO SCH ×2 (13:32→21:30)
[2021-05-31] MEDS: THIAMINE 100 MG TABLET PO SCH (13:33)
[2021-05-31] MEDS: PRENATAL VITAMIN TABLET PO SCH (13:33)
[2021-05-31] MEDS: polyethylene glycoL 3350 17 GM PACKET PO SCH (13:33)
--- NOTE | 2021-05-31 14:14 | PHARMACY PROGRESS NOTE ---
- Best Possible Medication History Admit Date and Time: 05/30/21 1052 Processed by: Pharmacy Medication History completed: Yes Patient Interview: Pt unable to participate Secondary Source(s): Pharmacy records, Insurance records As the person ultimately responsible for medication therapy, providers are able to order a medication from an existing home medication list in [facility] via the "Reconcile Routine" prior to Confirmation of that medication by director decision support. Such practice is discouraged except when the physician, in their clinical judgment, deems that a medical need exists for a medication without regard to previous use.
[2021-05-31] MEDS: GABAPENTIN 300 MG CAPSULE PO SCH ×2 (14:55→21:30)
[2021-05-31] MEDS: DORZOLAMIDE 2% OPHTH DROPS EACHEYE SCH (21:30)
[2021-06-01] MEDS: GABAPENTIN 300 MG CAPSULE PO SCH ×2 (05:26→16:20)
[2021-06-01] MEDS: methylPREDNISolone SUCCINATE 40 MG/ML VIAL IVP SCH (05:27)
[2021-06-01 05:50] LABS: BASOPHILS % (AUTO) 0.1 %; HCT - HEMATOCRIT 38.6 % (42.0-52.0); HGB - HEMOGLOBIN 12.8 g/dL (14.0-18.0); LYMPHOCYTES # (AUTO) 0.7 10^3/uL (1.5-3.5); LYMPHOCYTES % (AUTO) 4.5 %; MEAN CORPUSCULAR HEMOGLOBIN 29.5 pg (27.0-31.0); MEAN CORPUSCULAR HGB CONC 33.2 g/dL (32.0-36.0); MEAN CORPUSCULAR VOLUME 88.9 fL (80.0-94.0); MEAN PLATELET VOLUME 9.9 fL (7.4-11.4); MONOCYTES # (AUTO) 0.5 10^3/uL (0.0-1.0); MONOCYTES % (AUTO) 3.1 %; NEUTROPHILS # (AUTO) 13.4 10^3/uL (1.5-6.6); NEUTROPHILS % (AUTO) 91.8 %; PLT - PLATELET COUNT 255 10^3/uL (130-450); RED BLOOD COUNT 4.34 10^6/uL (4.70-6.10); RED CELL DISTRIBUTION WIDTH 14.7 % (12.0-15.0); WHITE BLOOD COUNT 14.6 x10^3/uL (4.8-10.8)
[2021-06-01 05:58] LABS: CALCIUM 8.9 mg/dL (8.5-10.3); CREATININE 0.7 mg/dL (0.6-1.2)
[2021-06-01] MEDS: IPRATROPIUM/ALBUTEROL 3 ML NEB INH PRN (07:26)
[2021-06-01] MEDS: BUDESONIDE 0.5 MG/2 ML NEB INH SCH (07:27)
[2021-06-01] MEDS: FORMOTEROL FUMARATE NEB 20 MCG/2 ML INH SCH (07:27)
[2021-06-01] MEDS: chlordiazePOXIDE 25 MG CAPSULE PO SCH (08:32)
[2021-06-01] MEDS: ENOXAPARIN 40 MG/0.4 ML SYRINGE SUBQ SCH (08:34)
[2021-06-01] MEDS: SODIUM CHLORIDE FLUSH 0.9% 10 ML SYRINGE IVP SCH ×2 (08:34→17:40)
[2021-06-01] MEDS: polyethylene glycoL 3350 17 GM PACKET PO SCH (08:34)
[2021-06-01] MEDS: THIAMINE 100 MG TABLET PO SCH (08:34)
[2021-06-01] MEDS: PRENATAL VITAMIN TABLET PO SCH (08:34)
[2021-06-01] MEDS: DORZOLAMIDE 2% OPHTH DROPS EACHEYE SCH (08:35)
[2021-06-01] MEDS ORDERED: CHOLECALCIFEROL 25 MCG TABLET PO SCH (09:00)
[2021-06-01] MEDS ORDERED: LATANOPROST 0.005% OPHTH DROPS EACHEYE SCH (09:00)
--- NOTE | 2021-06-01 10:26 | PROVIDER PROGRESS NOTE ---
Subjective - Prog Note Date Prog Note Date: 06/01/21 - Subjective Subjective: He feels much better compared to when he first presented to the emergency department. Still feels a little short of breath at times. Feels that his tremor has improved. He does not like the SCDs as he feels like it makes his peripheral neuropathy worse. Current Medications - Current Medications Current Medications: Active Medications Albuterol/Ipratropium (Ipratropium/Albuterol 3 Ml Neb) 3 ml INH Q4HR PRN PRN Reason: Wheezing Last Admin: 06/01/21 07:26 Dose: 3 ml Documented by: Budesonide (Budesonide 0.5 Mg/2 Ml Neb) 0.5 mg INH RTBID [facility] Last Admin: 06/01/21 07:27 Dose: 0.5 mg Documented by: Chlordiazepoxide HCl (Chlordiazepoxide 25 Mg Capsule) 25 mg PO BID [facility] Last Admin: 06/01/21 08:32 Dose: 25 mg Documented by: Cholecalciferol (Cholecalciferol 25 Mcg Tablet) 25 mcg PO DAILY [facility] Last Admin: 06/01/21 08:34 Dose: 25 mcg Documented by: Dorzolamide HCl (Dorzolamide 2% Ophth Drops) 1 drops EACHEYE BID [facility] Last Admin: 06/01/21 08:35 Dose: 1 drops Documented by: Enoxaparin Sodium (Enoxaparin 40 Mg/0.4 Ml Syringe) 40 mg SUBQ DAILY [facility] Last Admin: 06/01/21 08:34 Dose: 40 mg Documented by: Formoterol Fumarate (Formoterol Fumarate Neb 20 Mcg/2 Ml) 20 mcg INH RTBID AMAURI Last Admin: 06/01/21 07:27 Dose: 20 mcg Documented by: Gabapentin (Gabapentin 300 Mg Capsule) 300 mg PO TID [facility] Last Admin: 06/01/21 05:26 Dose: 300 mg Documented by: Latanoprost (Latanoprost 0.005% Ophth Drops) 1 drops EACHEYE DAILY [facility] Last Admin: 06/01/21 08:34 Dose: 1 drops Documented by: Lorazepam (Lorazepam 2 Mg/Ml Vial) 1 mg IVP Q30M PRN; Protocol PRN Reason: CIWA >8 Methylprednisolone (Methylprednisolone Succinate 40 Mg/Ml Vial) 40 mg IVP ONCE AMAURI Stop: 06/01/21 19:00 Ondansetron HCl (Ondansetron 4 Mg/2 Ml Vial) 4 mg IVP Q6HR PRN PRN Reason: Nausea / Vomiting Polyethylene Glycol (Polyethylene Glycol 3350 17 Gm Packet) 17 gm PO DAILY [facility] Last Admin: 06/01/21 08:34 Dose: 17 gm Documented by: Multivit/Folic Acid/Iron ( Vitamin Tablet) 1 tab PO DAILY [facility] Last Admin: 06/01/21 08:34 Dose: 1 tab Documented by: Sodium Chloride (Sodium Chloride Flush 0.9% 10 Ml Syringe) 10 ml IVP PRN PRN PRN Reason: NEEDED PER PROVIDER ORDERS Last Admin: 05/31/21 21:33 Dose: 10 ml Documented by: Sodium Chloride (Sodium Chloride Flush 0.9% 10 Ml Syringe) 10 ml IVP 0100,0900,1700 [facility] Last Admin: 06/01/21 08:34 Dose: 10 ml Documented by: Thiamine HCl (Thiamine 100 Mg Tablet) 100 mg PO DAILY [facility] Last Admin: 06/01/21 08:34 Dose: 100 mg Documented by: Albuterol Sulf [Ventolin Hfa Inhaler] 2 puffs INH Q4HR PRN 05/31/21 Cholecalciferol [Vitamin D3] 25 mcg PO DAILY 05/31/21 Cyanocobalamin (Vitamin B-12) [Vitamin B-12] 1,000 mcg PO DAILY 05/31/21 Dorzolamide HCl/Pf [Dorzolamide 2% Eye Drop] 1 drops EACHEYE BID 05/31/21 Gabapentin [Neurontin] 300 mg PO TID 05/31/21 Latanoprost 0.005% Ophth Drops [Xalatan Ophth Drops] 1 drops EACHEYE DAILY 05/31/21 Olodaterol HCl [Striverdi Respimat] 2 puffs INH DAILY 05/31/21 Thiamine [Vitamin B-1] 100 mg PO DAILY 05/31/21 Objective - Vital Signs/Intake & Output Reviewed Vital Signs: Yes Vital Signs: Vital Signs x48h Temp Pulse Pulse Resp BP Pulse Ox 06/01/21 09:00 37.2 C 87 16 121/76 91 L 06/01/21 07:27 81 12 06/01/21 05:23 36.4 C L 87 17 122/81 H 93 Intake & Output: Intake & Output 05/29/21 05/30/21 05/31/21 06/01/21 23:59 23:59 23:59 23:59 Intake Total 790 1820 240 Output Total 550 205 875 Balance 240 6075 -955 - Objective General Appearance: positive: No acute distress, Alert Eyes Bilateral: positive: Normal inspection, Conjunctivae nml ENT: positive: ENT inspection nml Neck: positive: Nml inspection Respiratory: positive: No respiratory distress, Wheezes (Expiratory wheezes.), Other (Tachpynic at rest.) Cardiovascular: positive: No murmur. negative: Extrasystoles, Systolic murmur Abdomen: positive: Non-tender, No distention. negative: Tenderness Skin: positive: Warm, Dry Neurologic/Psychiatric: positive: Motor nml, Other (Mild resting tremor of the upper extremities.). negative: Disoriented to person, Disoriented to place, Disoriented to time - Lab Results Fish Bones: 06/01/21 05:22 06/01/21 05:22 Other Labs: Lab Results x24hrs 06/01/21 06/01/21 Range/Units 05:22 05:22 WBC 14.6 H (4.8-10.8) x10^3/uL RBC 4.34 L (4.70-6.10) 10^6/uL Hgb 12.8 L (14.0-18.0) g/dL Hct 38.6 L (42.0-52.0) % MCV 88.9 (80.0-94.0) fL MCH 29.5 (27.0-31.0) pg MCHC 33.2 (32.0-36.0) g/dL RDW 14.7 (12.0-15.0) % Plt Count 255 (130-450) 10^3/uL MPV 9.9 (7.4-11.4) fL Neut # (Auto) 13.4 H (1.5-6.6) 10^3/uL Lymph # (Auto) 0.7 L (1.5-3.5) 10^3/uL [place] # (Auto) 0.5 (0.0-1.0) 10^3/uL Eos # (Auto) 0.0 (0.0-0.7) 10^3/uL Baso # (Auto) 0.0 (0.0-0.1) 10^3/uL Absolute Nucleated RBC 0.00 x10^3/uL Nucleated RBC % 0.0 /100WBC Sodium 135 (135-145) mmol/L Potassium 4.0 (3.5-5.0) mmol/L Chloride 100 L (101-111) mmol/L Carbon Dioxide 26 (21-32) mmol/L Anion Gap 9.0 (6-13) BUN 19 (6-20) mg/dL Creatinine 0.7 (0.6-1.2) mg/dL Estimated GFR (MDRD) 109 (>89) Glucose 140 H (70-100) mg/dL Calcium 8.9 (8.5-10.3) mg/dL ABX Reporting Has patient been on IV antibiotics over the past 48 hours?: No Assessment/Plan - Problem List (1) COPD exacerbation Impression: He is significantly improved but still has some dyspnea with activity although this is improved compared to yesterday. He is no longer requiring supplemental oxygen. He still does have expiratory wheezes. We will decrease his Solu- Medrol to 40 mg IV today and switch him to oral prednisone tomorrow to complete 5 days of therapy. I suspect he will be able to be discharged home tomorrow. Continue duo nebs [id number] with albuterol as needed. He will be asked to continue his home Spiriva and albuterol. He will have an exercise desaturation test prior to discharge. Goal oxygen saturation greater than 88%. (2) Acute respiratory failure with hypoxemia Impression: Resolved. This was secondary to a COPD exacerbation. He is saturating above 88% on room air. We will continue managing the COPD exacerbation as mentioned above. He will need an exercise desaturation test prior to discharge. (3) Alcohol withdrawal Impression: He showed evidence of alcohol withdrawal yesterday with restlessness, and tremors. He was started on Librium with improvement. We will continue Librium and taper this over the next few days. Qualifiers: Complication of substance-induced condition: uncomplicated Qualified Code(s): F10.230 - Alcohol dependence with withdrawal, uncomplicated (4) Alcohol abuse Impression: He has history of alcohol abuse and consumes 4-6 beers a day. We have him on thiamine and folic acid. Management of his mild withdrawal as mentioned above. (5) Peripheral neuropathy Impression: This was exacerbated by the SCDs but since discontinuing them, he feels back to his baseline. We will continue his home gabapentin. (6) Glaucoma Impression: Stable. We are continuing his home eyedrops.
[2021-06-01] MEDS ORDERED: ALBUTEROL NEB 2.5 MG/3 ML INH PRN (10:42)
[2021-06-01] MEDS: IPRATROPIUM/ALBUTEROL 3 ML NEB INH SCH ×2 (11:27→15:59)
--- NOTE | 2021-06-01 16:46 | Discharge Plan ---
Discharge Plan Problem Reviewed?: Yes Disposition: Home, Self Care Condition: Stable Prescriptions: predniSONE [Deltasone] 40 mg PO DAILY 2 Days #4 tablet Tiotropium [place] [Spiriva] 1 puffs INH DAILY 30 Days #30 each Diet: Regular Activity Restrictions: Activity as Tolerated Shower Restrictions: No Driving Restrictions: No Instruction Topics: COPD Dc Health Concerns: You were admitted to the hospital because of a COPD flareup. You were treated with breathing treatments and steroids with improvement. You are now feeling better and you are stable for discharge home. Plan of Treatment: Please take that prednisone 40 mg for 2 more days starting tomorrow. The last day will be June 03. Please follow-up with your primary care physician in 1 week. I have sent a new prescription for your COPD called Spiriva which you can take once a day. You can continue to take your other inhalers as previously prescribed. It is recommended that you stop drinking alcohol as well. This can cause fci liver damage. Care Goals: The goal is to treat the underlying COPD and to prevent further exacerbations. Assessment: The patient expressed understanding of the treatment plan. Additional Instructions or Follow Up instructions: Please follow-up with your primary care physician in 1 week. Please return to the emergency department if you develop any difficulty breathing or chest pain. No Smoking: If you smoke, Please STOP! Call for help. Follow-up with: JUNIOR SCHAFER ARNP [Primary Care Provider] -
[2021-06-01] MEDS ORDERED: methylPREDNISolone SUCCINATE 40 MG/ML VIAL IVP SCH (17:00)
--- NOTE | 2021-06-01 17:10 | DISCHARGE SUMMARY ---
Discharge Summary Admit Date: 05/30/21 Discharge Date: 06/01/21 Discharging Provider: Joshua Klein Primary Care Provider: Nargis Lane Code Status: Attempt Resuscitation Condition at Discharge: Stable Discharge Disposition: 01 Home, Self Care - DIAGNOSES Admission Diagnoses: COPD exacerbation Acute respiratory failure with hypoxemia Discharge Diagnoses with Status of Each Condition: COPD exacerbation - improved. Acute story failure with hypoxemia - resolved. Alcohol withdrawal - improved. Alcohol abuse - stable. Peripheral neuropathy - stable. Glaucoma - stable. - HPI History of Present Illness: H&P per Dr. Davis: 75-year-old male with medical history significant for COPD and neuropathy who presented to the ED with complaint of dyspnea which has been going on for the past 1 week. He has also had nonproductive cough. He thinks his dyspnea was exacerbated by the warm weather. Today his symptoms became unbearable so he called EMS. His oxygen saturation was in the 80s on room air. He does not use oxygen at home. He reports a similar exacerbation of his respiratory symptoms about 2 years ago during which time he was admitted at the [facility]. He denies chest pain but reports tightness with inspiration. He denies abdominal pain, nausea, vomiting, fever or chills. He has diminished air movement and is wheezing. He is being admitted for further treatment. - HOSPITAL COURSE Hospital Course: He was admitted for COPD exacerbation and initially required 2 L of oxygen via nasal cannula. He was treated with Solu-Medrol IV 3 times daily as well as with formoterol and the desonide. He was also started on duo nebs as needed. He improved from a dyspnea standpoint over the next 48 hours and was weaned off of the oxygen. His white count did increase during his hospitalization which was attributed to the Solu-Medrol. He did show evidence of mild alcohol withdrawal during his hospitalization and was started on Librium with improvement in his restlessness and tremors. The day of discharge, he requested to be discharged instead of having his respiratory status monitor 1 more day. He did not like the effects of Librium on him and felt that it was over sedating and so he was not discharged on Librium. We did do an exercise desaturation test prior to discharge and his oxygen saturations remained above 89% with activity and at rest. He does not need supplemental oxygen at home. I did prescribe him prednisone 40 mg to take daily for 2 more days and this was sent to the [facility] in [place]. I also sent him a new prescription for Spiriva to take in addition to Olod[facility]ol [facility] He was counseled on the importance of follow-up and alcohol cessation. - ALLERGIES Allergies/Adverse Reactions: Allergies Allergy/AdvReac Type Severity Reaction Status Date / Time acetaminophen [From Tylenol] Allergy Rash Verified 05/30/21 08:56 - MEDICATIONS Home Medications: Ambulatory Orders Medication Instructions Recorded Confirmed Albuterol Sulf [Ventolin Hfa 2 puffs INH Q4HR PRN 05/31/21 05/31/21 Inhaler] Cholecalciferol [Vitamin D3] 25 mcg PO DAILY 05/31/21 05/31/21 Cyanocobalamin (Vitamin B-12) 1,000 mcg PO DAILY 05/31/21 05/31/21 [Vitamin B-12] Dorzolamide HCl/Pf [Dorzolamide 2% 1 drops EACHEYE BID 05/31/21 05/31/21 Eye Drop] Gabapentin [Neurontin] 300 mg PO TID 05/31/21 05/31/21 Latanoprost 0.005% Ophth Drops 1 drops EACHEYE DAILY 05/31/21 05/31/21 [Xalatan Ophth Drops] Olodaterol HCl [Striverdi Respimat] 2 puffs INH DAILY 05/31/21 05/31/21 Thiamine [Vitamin B-1] 100 mg PO DAILY 05/31/21 05/31/21 Tiotropium [place] [Spiriva] 1 puffs INH DAILY 30 Days #30 each 06/01/21 predniSONE [Deltasone] 40 mg PO DAILY 2 Days #4 tablet 06/01/21 - PHYSICAL EXAM AT DISCHARGE General Appearance: positive: No acute distress Eyes Bilateral: positive: Normal inspection, Conjunctivae nml ENT: positive: ENT inspection nml Neck: positive: Nml inspection Respiratory: positive: No respiratory distress, Wheezes (Faint expiratory wheezes.) Cardiovascular: positive: Regular rate & rhythm, No murmur. negative: Tachycardia Abdomen: positive: Non-tender, No distention. negative: Tenderness, Guarding, Rebound Skin: positive: Warm, Dry Extremities: positive: No pedal edema Neurologic/Psychiatric: positive: Motor nml. negative: Disoriented to person, Disoriented to place Physical Exam Other/Comments: Vital Signs - 24 hr 05/31/21 05/31/21 06/01/21 20:08 21:00 00:00 Temperature 36.4 C L 36.5 C Heart Rate 90 Heart Rate [ Activity] Heart Rate [ 92 88 Brachial] Heart Rate [ Sitting] Heart Rate [ Supine] Respiratory 20 20 18 Rate Blood Pressure [Activity] Blood Pressure 132/80 H 121/74 [Right Brachial artery] Blood Pressure [Sitting] Blood Pressure [Supine] O2 Saturation 94 93 06/01/21 06/01/21 06/01/21 05:23 07:27 09:00 Temperature 36.4 C L 37.2 C Heart Rate 81 Heart Rate [ Activity] Heart Rate [ 87 87 Brachial] Heart Rate [ Sitting] Heart Rate [ Supine] Respiratory 17 12 16 Rate Blood Pressure [Activity] Blood Pressure 122/81 H 121/76 [Right Brachial artery] Blood Pressure [Sitting] Blood Pressure [Supine] O2 Saturation 93 91 L 06/01/21 06/01/21 06/01/21 10:20 11:27 12:21 Temperature 36.3 C L Heart Rate 85 Heart Rate [ 99 Activity] Heart Rate [ 83 Brachial] Heart Rate [ 98 Sitting] Heart Rate [ 115 H Supine] Respiratory 12 18 Rate Blood Pressure 117/97 H [Activity] Blood Pressure 118/73 [Right Brachial artery] Blood Pressure 117/97 H [Sitting] Blood Pressure 114/83 H [Supine] O2 Saturation 93 06/01/21 06/01/21 16:01 17:06 Temperature Heart Rate 96 133 H Heart Rate [ Activity] Heart Rate [ Brachial] Heart Rate [ Sitting] Heart Rate [ Supine] Respiratory 12 Rate Blood Pressure [Activity] Blood Pressure [Right Brachial artery] Blood Pressure [Sitting] Blood Pressure [Supine] O2 Saturation Oxygen O2 Source Room air Oxygen Flow Rate 4 - LABS Result Diagrams: 06/01/21 05:22 06/01/21 05:22 - DIAGNOSTIC IMAGING Diagnostic Imaging Results: Final report reviewed - FOLLOW UP Follow Up: He was asked to follow-up with his primary care provider in 1 week. - TIME SPENT Time Spent in Discharge (Minutes): 32
[2021-06-01 17:40] VITALS: BP 126/75
[2021-06-01] MEDS ORDERED: chlordiazePOXIDE 25 MG CAPSULE PO SCH (21:00)
== END 2021-06-01 18:10 | disposition home or self-care (01) | DRG 189 ==
LOC: EDUNIT# → ED 08:40 → MS2 10:52
PROVIDERS: ADMIT Internal Medicine; ATTEND Internal Medicine
DX: J96.01 Acute respiratory failure with hypoxia (principal); J44.1 Chronic obstructive pulmonary disease with (acute) exacerbation; F10.139 Alcohol abuse with withdrawal, unspecified; E11.42 Type 2 diabetes mellitus with diabetic polyneuropathy; H40.9 Unspecified glaucoma; Z20.822 Contact with and (suspected) exposure to COVID-19; Z87.891 Personal history of nicotine dependence
CPT/HCPCS: 0202U; 36415; 71045; 80048; 82803; 83735; 83880; 84484; 85025; 93005; 94640; 94761; 97161; 99285; 99291; A9270; J1650; J7626

== ENCOUNTER 2021-09-22 19:17 | Outpatient (CLI) | payer OTHER | END 2021-09-22 19:18 | disposition critical access hospital (66) | LOC: EMS 19:17 | DX: R06.02 Shortness of breath (principal) | CPT/HCPCS: A0425; A0429 ==

== ENCOUNTER 2021-09-22 19:51 | Emergency (ER) | payer OTHER ==
--- NOTE | 2021-09-22 19:56 | ED Physician Documentation ---
PD HPI DYSPNEA - Stated complaint Stated Complaint: SOA - History obtained from History obtained from: Patient, EMS - History of Present Illness Timing - onset: How many days ago (several days) Timing - onset during: Light activity Timing - duration: Days Timing - details: Gradual onset, Still present Inciting event(s): Other (denies exposure to sick folk. Lives home alone. Not immunized.). No: URI Improved by: Inhaler/neb Associated symptoms: Cough, Wheezing. No: Fever, Hemoptysis, Chest pain / discomfort, Bilateral edema Similar symptoms before: Diagnosis (COPD with occasional flares.) Recently seen: Not recently seen Review of Systems Constitutional: reports: Myalgias. denies: Fever, Chills Nose: reports: Congestion. denies: Rhinorrhea / runny nose Throat: denies: Sore throat Cardiac: denies: Chest pain / pressure, Palpitations Respiratory: reports: Dyspnea, Cough, Wheezing GI: denies: Nausea, Vomiting, Diarrhea Neurologic: reports: Generalized weakness. denies: Focal weakness, Numbness, Near syncope PD PAST MEDICAL HISTORY - Past Medical History Cardiovascular: None Respiratory: COPD Neuro: Peripheral neuropathy Endocrine/Autoimmune: Type 2 diabetes GI: None : None Psych: None Musculoskeletal: None Derm: None - Past Surgical History Past Surgical History: Yes General: Other - Present Medications Home Medications: Ambulatory Orders Medication Instructions Recorded Confirmed Albuterol Sulf [Ventolin Hfa 2 puffs INH Q4HR PRN 05/31/21 05/31/21 Inhaler] Cholecalciferol [Vitamin D3] 25 mcg PO DAILY 05/31/21 05/31/21 Cyanocobalamin (Vitamin B-12) 1,000 mcg PO DAILY 05/31/21 05/31/21 [Vitamin B-12] Dorzolamide HCl/Pf [Dorzolamide 2% 1 drops EACHEYE BID 05/31/21 05/31/21 Eye Drop] Gabapentin [Neurontin] 300 mg PO TID 05/31/21 05/31/21 Latanoprost 0.005% Ophth Drops 1 drops EACHEYE DAILY 05/31/21 05/31/21 [Xalatan Ophth Drops] Olodaterol HCl [Striverdi Respimat] 2 puffs INH DAILY 05/31/21 05/31/21 Thiamine [Vitamin B-1] 100 mg PO DAILY 05/31/21 05/31/21 Tiotropium [place] [Spiriva] 1 puffs INH DAILY 30 Days #30 each 06/01/21 predniSONE [Deltasone] 40 mg PO DAILY 2 Days #4 tablet 06/01/21 Albuterol 2.5 mg INH Q4H PRN #30 neb 09/22/21 Amoxicillin 500 mg PO TID #15 cap 09/22/21 Fluticasone/Salmeterol [Advair 1 each IH BID 30 Days #1 unit 09/22/21 250-50 Diskus] dexAMETHasone [Decadron] 4 mg PO DAILY #5 tablet 09/22/21 guaiFENesin [Mucinex] 600 mg PO BID 7 Days #15 tablet 09/22/21 - Allergies Allergies/Adverse Reactions: Allergies Allergy/AdvReac Type Severity Reaction Status Date / Time acetaminophen [From Tylenol] Allergy Rash Verified 05/30/21 08:56 - Social History Does the pt smoke?: No Smoking Status: Former smoker - Immunizations Immunizations are current?: Yes - POLST Patient has POLST: No POLST Status: Full Code PD ED PE NORMAL - Vitals Vital signs reviewed: Yes - General General: Alert and oriented X 3, No acute distress, Well developed/nourished - HEENT HEENT: Pharynx benign - Neck Neck: Supple, no meningeal sign, No adenopathy - Cardiac Cardiac: RRR (mild tachycardia), No murmur - Respiratory Respiratory: No: Clear bilaterally (no coarse sounds. Has diffuse wheezing and p rolonged exp phase. No accessory muscle use. ) - Abdomen Abdomen: Soft, Non tender - Derm Derm: Normal color, Warm and dry - Extremities Extremities: No tenderness to palpate, No edema, No calf tenderness / cord - Neuro Neuro: Alert and oriented X 3, No motor deficit, Normal speech Results - Vitals Vitals: Vital Signs - 24 hr 09/22/21 09/22/21 09/22/21 19:56 20:01 20:35 Temperature 36.7 C 36.7 C Heart Rate 103 H 103 H 100 Respiratory 28 H 28 H 20 Rate Blood Pressure 138/80 H 138/80 H O2 Saturation 96 96 09/22/21 09/22/21 09/22/21 21:25 22:37 23:30 Temperature 36.3 C L Heart Rate 104 H 103 H 95 Respiratory 20 22 24 Rate Blood Pressure 112/82 H 126/85 H O2 Saturation 91 L 95 Oxygen O2 Source Room air - EKG (time done) 20:29 Rate: Rate (enter#) (98) Rhythm: NSR [place]: Normal Intervals: Normal MS QRS: Normal Ischemia: Normal ST segments. No: ST elevation c/w ischemia, ST depression - Labs Labs: Laboratory Tests 09/22/21 09/22/21 09/22/21 18:20 20:15 20:15 WBC 8.1 RBC 4.57 L Hgb 13.1 L Hct 40.7 L MCV 89.1 MCH 28.7 MCHC 32.2 RDW 15.0 Plt Count 274 MPV 9.3 Neut # (Auto) 5.6 Lymph # (Auto) 1.0 L Morgan # (Auto) 0.6 Eos # (Auto) 0.8 H Baso # (Auto) 0.1 Absolute Nucleated RBC 0.00 Nucleated RBC % 0.0 Sodium 130 L Potassium 3.8 Chloride 91 L Carbon Dioxide 29 Anion Gap 10.0 BUN 7 Creatinine 0.7 Estimated GFR (MDRD) 109 Glucose 105 H Calcium 8.6 Magnesium 2.0 Total Bilirubin 0.9 AST 24 ALT 13 Alkaline Phosphatase 64 Troponin I High Sens B-Natriuretic Peptide Total Protein 6.5 L Albumin 3.5 Globulin 3.0 Albumin/Globulin Ratio 1.2 Lipase 27 Nasal Adenovirus (PCR) NOT DETECTED Nasal B. parapertussis DNA (PCR) NOT DETECTED Nasal Coronavir 229E PCR NOT DETECTED Nasal Coronavir HKU1 PCR NOT DETECTED Nasal Coronavir NL63 PCR NOT DETECTED Nasal Coronavir OC43 PCR NOT DETECTED Nasal Enterovir/Rhinovir PCR NOT DETECTED Nasal Influenza B PCR NOT DETECTED Nasal Influenza A PCR NOT DETECTED Nasal Parainfluen 1 PCR NOT DETECTED Nasal Parainfluen 2 PCR NOT DETECTED Nasal Parainfluen 3 PCR NOT DETECTED Nasal Parainfluen 4 PCR NOT DETECTED Nasal RSV (PCR) NOT DETECTED Nasal B.pertussis DNA PCR NOT DETECTED Nasal C.pneumoniae (PCR) NOT DETECTED Chava Human Metapneumo PCR NOT DETECTED Nasal M.pneumoniae (PCR) NOT DETECTED Nasal SARS-CoV-2 (PCR) NOT DETECTED 09/22/21 09/22/21 20:15 20:15 WBC RBC Hgb Hct MCV MCH MCHC RDW Plt Count MPV Neut # (Auto) Lymph # (Auto) Morgan # (Auto) Eos # (Auto) Baso # (Auto) Absolute Nucleated RBC Nucleated RBC % Sodium Potassium Chloride Carbon Dioxide Anion Gap BUN Creatinine Estimated GFR (MDRD) Glucose Calcium Magnesium Total Bilirubin AST ALT Alkaline Phosphatase Troponin I High Sens 6.6 B-Natriuretic Peptide 26 Total Protein Albumin Globulin Albumin/Globulin Ratio Lipase Nasal Adenovirus (PCR) Nasal B. parapertussis DNA (PCR) Nasal Coronavir 229E PCR Nasal Coronavir HKU1 PCR Nasal Coronavir NL63 PCR Nasal Coronavir OC43 PCR Nasal Enterovir/Rhinovir PCR Nasal Influenza B PCR Nasal Influenza A PCR Nasal Parainfluen 1 PCR Nasal Parainfluen 2 PCR Nasal Parainfluen 3 PCR Nasal Parainfluen 4 PCR Nasal RSV (PCR) Nasal B.pertussis DNA PCR Nasal C.pneumoniae (PCR) Chava Human Metapneumo PCR Nasal M.pneumoniae (PCR) Nasal SARS-CoV-2 (PCR) - Rads (name of study) chest xray Radiology: Prelim report reviewed (hyperinflated without infiltrate.), See rad report PD MEDICAL DECISION MAKING - ED course Complexity details: re-evaluated patient (resting easily with good sats on RA after nebs x 2. He says he feels better. ), considered differential (exac COPD without infiltrates. No exposure to ill folk. He is not needing supplemental oxygen after nebs. Feeling better breathing. Does not appear to need hospitalization. ), d/w patient Departure - Departure Disposition: 01 Home, Self Care Clinical Impression: COPD exacerbation Dyspnea Qualifiers: Dyspnea type: shortness of breath Qualified Code(s): R06.02 - Shortness of breath Condition: Stable Record reviewed to determine appropriate education?: Yes Instructions: ED COPD Flare Follow-Up: JUNIOR SCHAFER ARNP [Primary Care Provider] - Prescriptions: Fluticasone/Salmeterol [Advair 250-50 Diskus] 1 each IH BID 30 Days #1 unit Albuterol 2.5 mg INH Q4H PRN #30 neb PRN Reason: Wheezing Amoxicillin 500 mg PO TID #15 cap dexAMETHasone [Decadron] 4 mg PO DAILY #5 tablet guaiFENesin [Mucinex] 600 mg PO BID 7 Days #15 tablet Comments: Albuterol for your nebulizer 4 times a day regularly for the next several days to a week. Decadron steroid daily for the next 5 more days. After that start using the Advair discus twice daily for the next month. Guaifenesin twice daily for congestion and sputum. Stay well-hydrated. With a flareup of your COPD, commonly there can be an associated infection triggering it as well. Amoxicillin 3 times a day for 5 days for that. Recheck if not improving well over the next few days and return sooner if worsening. Transmitted your prescriptions to [facility] pharmacy in [place]. Discharge Date/Time: 09/22/21 23:35
[2021-09-22] MEDS ORDERED: SODIUM CHLORIDE 0.9% 500 ML IV STA (20:09)
[2021-09-22] MEDS ORDERED: IPRATROPIUM/ALBUTEROL 3 ML NEB INH STA (20:10)
[2021-09-22] MEDS ORDERED: DEXAMETHASONE 10 MG/ML VIAL IVP STA (20:10)
[2021-09-22 20:20] LABS: BASOPHILS # (AUTO) 0.1 10^3/uL (0.0-0.1); BASOPHILS % (AUTO) 1.1 %; EOSINOPHILS # (AUTO) 0.8 10^3/uL (0.0-0.7); HCT - HEMATOCRIT 40.7 % (42.0-52.0); HGB - HEMOGLOBIN 13.1 g/dL (14.0-18.0); LYMPHOCYTES % (AUTO) 12.7 %; MEAN CORPUSCULAR HEMOGLOBIN 28.7 pg (27.0-31.0); MEAN CORPUSCULAR HGB CONC 32.2 g/dL (32.0-36.0); MEAN CORPUSCULAR VOLUME 89.1 fL (80.0-94.0); MEAN PLATELET VOLUME 9.3 fL (7.4-11.4); MONOCYTES # (AUTO) 0.6 10^3/uL (0.0-1.0); MONOCYTES % (AUTO) 7.3 %; NEUTROPHILS # (AUTO) 5.6 10^3/uL (1.5-6.6); NEUTROPHILS % (AUTO) 68.8 %; PLT - PLATELET COUNT 274 10^3/uL (130-450); RED BLOOD COUNT 4.57 10^6/uL (4.70-6.10); WHITE BLOOD COUNT 8.1 x10^3/uL (4.8-10.8)
[2021-09-22 20:34] LABS: ALBUMIN 3.5 g/dL (3.2-5.5); ALBUMIN/GLOBULIN RATIO 1.2 (1.0-2.2); BILIRUBIN,TOTAL 0.9 mg/dL (0.2-1.0); CALCIUM 8.6 mg/dL (8.5-10.3); CREATININE 0.7 mg/dL (0.6-1.2); POTASSIUM 3.8 mmol/L (3.5-5.0); TOTAL PROTEIN 6.5 g/dL (6.7-8.2)
--- NOTE | 2021-09-22 20:52 | XRAY Report ---
PROCEDURE: Chest 1 View X-Ray INDICATIONS: Chest Pain TECHNIQUE: One view of the chest was acquired. COMPARISON: May 30, 2021 FINDINGS: SUPPORT DEVICES: None. LUNGS/PLEURA: Hyperexpansion of lungs with coarsened interstitial markings. No focal consolidation, p leural effusion or space-occupying pneumothorax. Granulomatous changes. MEDIASTINUM: The cardiomediastinal silhouette is within normal limits. BONES/SOFT TISSUES: No acute abnormality. IMPRESSION: 1.No acute cardiopulmonary abnormality. Reviewed by: Shaw Arora MD on 09/22/2021 8:51 PM [facility] Approved by: Shaw Arora MD on 09/22/2021 8:51 PM [facility] Station ID: [id number]
[2021-09-22] MEDS ORDERED: guaiFENesin 600 MG TABLET PO STA (21:10)
[2021-09-22] MEDS ORDERED: ALBUTEROL NEB 2.5 MG/3 ML INH STA (21:10)
[2021-09-22] MEDS ORDERED: cefTRIAXone 1 GM VIAL IVP STA (21:11)
[2021-09-22 21:35] LABS: B. PARAPERTUSSIS- RESP PCR PAN NOT DETECTED; B. PERTUSSIS- RESP PCR PANEL NOT DETECTED; C. PNEUMONIAE- RESP PCR PANEL NOT DETECTED; CORONAVIRUS 229E-RESP PCR NOT DETECTED; CORONAVIRUS HKU1-RESP PCR NOT DETECTED; CORONAVIRUS NL63-RESP PCR NOT DETECTED; CORONAVIRUS OC43-RESP PCR NOT DETECTED; HUMAN METAPNEUMOVIRUS NOT DETECTED; INFLUENZA A- RESP PCR PANEL NOT DETECTED; INFLUENZA B - RESP PCR PANEL NOT DETECTED; M. PNEUMONIAE- RESP PCR PANEL NOT DETECTED; PARAINFLUENZA VIRUS 1 NOT DETECTED; PARAINFLUENZA VIRUS 2 NOT DETECTED; PARAINFLUENZA VIRUS 3 NOT DETECTED; PARAINFLUENZA VIRUS 4 NOT DETECTED; RHINOVIRUS/ENTEROVIRUS NOT DETECTED; RSV- RESP PCR PANEL NOT DETECTED; SARS-CoV-2 -RESP PCR PANEL NOT DETECTED
[2021-09-22 23:42] VITALS: BP 126/85
== END 2021-09-22 23:35 | disposition home or self-care (01) ==
LOC: EDUNIT# → ED 19:51
DX: J44.1 Chronic obstructive pulmonary disease with (acute) exacerbation (principal); E11.9 Type 2 diabetes mellitus without complications; Z87.891 Personal history of nicotine dependence; Z20.822 Contact with and (suspected) exposure to COVID-19
CPT/HCPCS: 0202U; 36415; 71045; 80053; 83690; 83735; 83880; 84484; 85025; 93005; 94640; 96374; 96375; 99283; 99285; A9270